=== PATIENT | male | born 1995 | race Caucasian/White ===

== ENCOUNTER 2025-06-21 11:20 | Emergency (ER) | payer SELFPAY ==
[2025-06-21] MEDS ORDERED: NA CHLORIDE 0.9% 1,000 ML ONE (11:34)
[2025-06-21] MEDS ORDERED: ONDANSETRON 4 MG/2 ML VIAL ONE ×2 (11:34→13:27)
--- NOTE | 2025-06-21 13:23 | ER ---
Nurse's Notes [facility] Name: Kenneth Brewer Age: 29 yrs Sex: Male : 1995 Arrival Date: 06/21/2025 Time: 11:20 Bed 6 Private MD: Diagnosis: Influenza due to identified novel influenza A virus-Influenza B;Dehydration Presentation: 06/21 11:28 Chief complaint: Patient states: Diagnosed with Flu B yesterday, pt reports inability aa5 to eat due to nausea, denies vomiting. Coronavirus screen: nausea. Ebola Screen: Patient denies travel to an Ebola-affected area in the 21 days before illness onset. Initial Sepsis Screen: Does the patient meet any 2 criteria? No. Patient's initial sepsis screen is negative. Does the patient have a suspected source of infection? No. Patient's initial sepsis screen is negative. Risk Assessment: Do you want to hurt yourself or someone else? Patient reports no desire to harm self or others. Onset of symptoms was June 2025. 11:28 Acuity: HARRISON 3 aa5 11:28 Method Of Arrival: Ambulatory aa5 Historical: - Allergies: 11:28 No Known Allergies; aa5 - PMHx: 11:28 None; aa5 - PSHx: 11:28 None; aa5 - Immunization history:: Adult Immunizations unknown. - Infectious Disease History:: Denies. - Social history:: Smoking status: Patient reports the use of cigarette tobacco products. Screenin:47 [facility] ED Fall Risk Assessment (Adult) History of falling in the last 3 months, me1 including since admission No falls in past 3 months (0 pts) Confusion or Disorientation No (0 pts) Intoxicated or Sedated No (0 pts) Impaired Gait No (0 pts) Mobility Assist Device Used No (0 pt) Altered Elimination No (0 pt) Score/Fall Risk Level 0 - 2 = Low Risk Maintained a safe environment, Provided non-skid footwear, Hourly rounding (assess needs \T\ fall precautionary measures) done. Abuse screen: Denies threats or abuse. Nutritional screening: No deficits noted. Tuberculosis screening: No symptoms or risk factors identified. Assessment: 11:47 General: Appears uncomfortable, ill, well groomed, well developed, well nourished, me1 Behavior is calm, cooperative, appropriate for age, Reports Diagnosed with Flu B yesterday, pt reports inability to eat due to nausea, denies vomiting. Pain: Denies pain. Neuro: Level of Consciousness is awake, alert, obeys commands, Oriented to person, place, time, situation, Appropriate for age. Cardiovascular: Patient's skin is warm and dry. Respiratory: Airway is patent Respiratory effort is even, unlabored, Respiratory pattern is regular, symmetrical. GI: Abdomen is non-distended, Reports nausea, since yesterday. : No signs and/or symptoms were reported regarding the genitourinary system. EENT: No signs and/or symptoms were reported regarding the EENT system. Derm: Skin is intact, is healthy with good turgor, Skin is pale. Musculoskeletal: No signs and/or symptoms reported regarding the musculoskeletal system. Circulation, motion, and sensation intact. Range of motion: intact in all extremities. Vital Signs: 11:28 BP 125 / 64; Pulse 69; Resp 22 S; Temp 98.5(O); Pulse Ox 100% on R/A; Weight 77.11 kg aa5 (R); Height 5 ft. 11 in. (R); 12:00 BP 109 / 55; Pulse 57; Resp 16; Pulse Ox 100% ; me1 13:00 BP 106 / 63; Pulse 48; Resp 19; Pulse Ox 98% ; me1 13:31 BP 134 / 66; Pulse 69; Resp 16; Temp 98.6; Pulse Ox 99% ; me1 11:28 Body Mass Index 23.71 (77.11 kg, 180.34 cm) aa5 ED Course: 11:24 Patient arrived in ED. cj3 11:25 Shaw Valle FNP-C is PHCP. dr5 11:25 Lisa Fuller MD is Attending Physician. dr5 11:28 Arm band placed on. aa5 11:29 Triage completed. aa5 11:33 Candi Silva, BI is Primary Nurse. me1 11:47 Patient has correct armband on for positive identification. Bed in low position. Call me1 light in reach. Side rails up X2. Provided Education on: POC. Verbalized understanding.. Client placed on continuous cardiac and pulse oximetry monitoring. NIBP monitoring applied. Pulse ox on. NIBP on. 11:47 No provider procedures requiring assistance completed. Inserted saline lock: 20 gauge me1 in left forearm, using aseptic technique. 13:38 IV discontinued, intact, bleeding controlled, No redness/swelling at site. Pressure me1 dressing applied. Administered Medications: 11:40 Drug: NS 0.9% IV 1000 ml IV at 1000 ml once; to be given as a bolus over 60 minutes me1 Route: IV; Rate: 1000 ml; Site: left forearm; 13:32 Follow up: Response: No adverse reaction; IV Status: Completed infusion; IV Intake: me1 1000ml 11:40 Drug: Ondansetron IVP 4 mg IVP once; over 2 minutes Route: IVP; Site: left forearm; me1 13:11 Follow up: Response: No adverse reaction; Nausea is decreased me1 13:38 Drug: Ondansetron IVP 4 mg IVP once; over 2 minutes Route: IVP; Site: left forearm; me1 13:42 Follow up: Response: No adverse reaction; Nausea is decreased me1 Medication: 11:47 VIS not applicable for this client. me1 Intake: 13:32 IV: 1000ml; Total: 1000ml. me1 Outcome: 13:22 Discharge ordered by MD. dr5 13:38 Discharged to home via wheelchair, me1 13:38 Condition: stable 13:38 Discharge instructions given to patient, Instructed on discharge instructions, follow up and referral plans. medication usage, Demonstrated understanding of instructions, follow-up care, medications, Prescriptions given X 2, 13:41 Patient left the ED. me1 Signatures: Olimpia Clarke RN RN aa5 Candi Silva RN RN me1 Shaw Valle, LUNCH TRUCK DRIVER-C LUNCH TRUCK DRIVER-Cdr5 Areli Simeon cj3 Corrections: (The following items were deleted from the chart) 11:46 11:28 Chief complaint: Patient states: Diagnosed with Flu B yesterday, pt reports me1 inability to eat due to nausea, denies vomiting. aa5
--- NOTE | 2025-06-21 13:23 | EDPHYS ---
Physician Documentation [facility] Name: Kenneth Brewer Age: 29 yrs Sex: Male : 1995 Arrival Date: 06/21/2025 Time: 11:20 Bed 6 Private MD: ED Physician Lisa Fuller HPI: 06/21 12:03 This 29 yrs old Male presents to ER via Ambulatory with complaints of FLU B dr5 POSITIVE, Dehydrated, Nausea. 12:03 Onset: The symptoms/episode began/occurred 3 day(s) ago. Patient is a 29-year-old male dr5 with no past medical history coming in with nausea and feeling of dehydration this been going on since yesterday. Patient reports he is been sick for 3 days. Patient states he went to [facility] and was diagnosed with influenza B. Patient reports they only prescribed him Zofran and is not helping his intake Patient denies chest pain, shortness of breath, constipation, or fever.. Historical: - Allergies: 11:28 No Known Allergies; aa5 - PMHx: 11:28 None; aa5 - PSHx: 11:28 None; aa5 - Immunization history:: Adult Immunizations unknown. - Infectious Disease History:: Denies. - Social history:: Smoking status: Patient reports the use of cigarette tobacco products. ROS: 12:03 Constitutional: as per hpi dr5 Exam: 12:03 Constitutional: This is a well developed, well nourished patient who is awake, alert, dr5 and in no acute distress. Head/Face: Normocephalic, atraumatic. Eyes: Pupils equal round and reactive to light, extra-ocular motions intact. Lids and lashes normal. Conjunctiva and sclera are non-icteric and not injected. Cornea within normal limits. Periorbital areas with no swelling, redness, or edema. Neck: Trachea midline, no thyromegaly or masses palpated, and no cervical lymphadenopathy. Supple, full range of motion without nuchal rigidity, or vertebral point tenderness. No Meningismus. Chest/axilla: Normal chest wall appearance and motion. Nontender with no deformity. No lesions are appreciated. Cardiovascular: Regular rate and rhythm with a normal S1 and S2. Normal PMI, no JVD. No pulse deficits. Respiratory: Lungs have equal breath sounds bilaterally, clear to auscultation. No rales, rhonchi or wheezes noted. No increased work of breathing, no retractions or nasal flaring. Back: No spinal tenderness. No costovertebral tenderness. Full range of motion. Skin: Warm, dry with normal turgor. Normal color with no rashes, no lesions, and no evidence of cellulitis. MS/ Extremity: Pulses equal, no cyanosis. Neurovascular intact. Full, normal range of motion. Neuro: Awake and alert, GCS 15, oriented to person, place, time, and situation. Cranial nerves II-XII grossly intact. Motor strength 5/5 in all extremities. Sensory grossly intact. Cerebellar exam normal. Normal gait. Vital Signs: 11:28 BP 125 / 64; Pulse 69; Resp 22 S; Temp 98.5(O); Pulse Ox 100% on R/A; Weight 77.11 kg aa5 (R); Height 5 ft. 11 in. (R); 12:00 BP 109 / 55; Pulse 57; Resp 16; Pulse Ox 100% ; me1 13:00 BP 106 / 63; Pulse 48; Resp 19; Pulse Ox 98% ; me1 13:31 BP 134 / 66; Pulse 69; Resp 16; Temp 98.6; Pulse Ox 99% ; me1 11:28 Body Mass Index 23.71 (77.11 kg, 180.34 cm) aa5 MDM: 11:25 Medical Screening Exam initiated dr5 13:25 Differential diagnosis: viral Infection, Dehydration, influenza. Data reviewed: vital dr5 signs, nurses notes. Consideration of Admission/Observation Escalation of care including admission/observation considered. Consider admission if patient was not p.o. tolerant.. Care significantly affected by the following Social Determinants of Health: Poor access to healthcare and/or lack of insurance, Poor access to transportation, Problems related to employment. Counseling: I had a detailed discussion with the patient and/or guardian regarding the historical points, exam findings, and any diagnostic results supporting the discharge/admit diagnosis, the presence of at least one elevated blood pressure reading (>120/80) during this emergency department visit, the need for outpatient follow up, for definitive care, a family practitioner, to return to the emergency department if symptoms worsen or persist or if there are any questions or concerns that arise at home. Medication response: Zofran relieved the patient's nausea. Normal saline. Response to treatment: the patient's symptoms have markedly improved after treatment. Special discussion: I have referred the patient to see his PCP for further evaluation of high blood pressure. I discussed with the patient/guardian in detail that at this point there is no indication for admission to the hospital. It is understood, however, that if the symptoms persist or worsen the patient needs to return immediately for re-evaluation. Based on the history and exam findings, there is no indication for further emergent testing or inpatient evaluation. I discussed with the patient/guardian the need to see the primary care provider for further evaluation of the symptoms. ED course: Patient was given 1 L NS and Zofran IV which has markedly improved his symptoms. Since symptoms started approximately 2 -3 days ago, will trial Tamiflu. I explained that Tamiflu may not be as effective given patient's time frame of symptoms. Patient reports he wants to try Tamiflu anyway. Patient has Zofran at home. Will add promethazine to try to help with his nausea. Patient passed p.o. challenge in ER. All questions answered. Strict ER precautions given.. Administered Medications: 11:40 Drug: NS 0.9% IV 1000 ml IV at 1000 ml once; to be given as a bolus over 60 minutes me1 Route: IV; Rate: 1000 ml; Site: left forearm; 13:32 Follow up: Response: No adverse reaction; IV Status: Completed infusion; IV Intake: me1 1000ml 11:40 Drug: Ondansetron IVP 4 mg IVP once; over 2 minutes Route: IVP; Site: left forearm; me1 13:11 Follow up: Response: No adverse reaction; Nausea is decreased me1 13:38 Drug: Ondansetron IVP 4 mg IVP once; over 2 minutes Route: IVP; Site: left forearm; me1 13:42 Follow up: Response: No adverse reaction; Nausea is decreased me1 Disposition Summary: 06/21/25 13:22 Discharge Ordered Notes: Location: Home dr5 Condition: Stable dr5 Diagnosis - Influenza due to identified novel influenza A virus - Influenza B dr5 - Dehydration dr5 Followup: dr5 - With: Emergency Department - When: As needed - Reason: Worsening of condition Followup: dr5 - With: Private Physician - When: 1 - 2 days - Reason: Recheck today's complaints, Continuance of care, Re-evaluation by your physician Discharge Instructions: - Discharge Summary Sheet dr5 - Influenza, Adult dr5 Forms: - Medication Reconciliation Form dr5 - Patient Portal Instructions dr5 - Leadership Thank You Letter dr5 Prescriptions: - promethazine 25 mg Oral Tablet - take 1 tablet ORAL route every 6 hours As needed; 20 tablet; Refills: 0, dr5 Product Selection Permitted - Tamiflu 75 mg Oral capsule - take 1 tablet ORAL route every 12 hours for 5 days; 10 tablet; Refills: 0, dr5 Product Selection Permitted Signatures: Olimpia Clarke RN RN aa5 Candi Silva RN RN me1 Shaw Valle, FIREFIGHTER-C FIREFIGHTER-Cdr5
[2025-06-21 13:52] VITALS: BP 134/66; TEMP 98.6; O2SAT 99
== END 2025-06-21 13:41 | disposition home or self-care (01) ==
LOC: ER 11:20
DX: J10.1 Influenza due to other identified influenza virus with other respiratory manifestations (principal); E86.0 Dehydration; Z72.0 Tobacco use
CPT/HCPCS: 96361; 96374; 99284; J2405; J7030

== ENCOUNTER 2025-06-22 03:03 | Emergency (ER) | payer SELFPAY ==
--- OUTSIDE RECORDS SUMMARY | 2025-06-22 03:06 | XMS REPORT | Continuity of Care Document ---
Author Name Unknown Address [address] [place] [address] [facility] Address [address] [place] [address] Care Team Providers Care Education Liaison Name Role Phone PCP, PATIENT DOES NOT HAVE A Primary Care Physic adriane Unavailable ELLI CASEY Attending Clinician Unavailable ELLI CASEY Attending Clinician Unavailable ZEHRA SPRING Attending Clinician Unavailab le Problems Condition Name Condition Details Condition Category Status Onset Date Resolution Date Last Treatment Date Treating Clinician Comments Source Tinea corporis Tinea corporis Disease Active 05-17 00:00: 00 [facility] Allergies, Adverse Reactions, Alerts Allergy Name Allergy Type Status Severity Reaction(s) Onset Date Inactive Date Treating Clinician Comments Source NO KNOWN ALLERGIE S Drug Class Active [facility] Social History Social Habit Start Date Stop Date Quantity Comments Source Sexual orientation [facility] Sex assigned at 1995 00:00:00 1995 00:00:00 [facility] Smoking Status Start Date Stop Date Source Tobacco smoking consumption unknown [facility] Medications Ordered Medication Name Filled Medication Name Start Date Stop Date Current Medication? Ordering Clinician Indication Dosage Frequency Signature (SIG) Comments Components Source ondansetron (ZOFRAN-ODT ) disintegrat ing tablet 4 mg 06-21 00:15: 00 06-20 23:24 :00 No 4mg 4 mg, Oral, ONCE, 1 dose, On 06/20/25 at 1915, DIMITRI [facility] clotrimazol e-betametha sone 1-0.05 % lotion 05-17 00:00: 00 05-25 04:59 :00 Yes [id number] Apply to area(s) 2 times daily for 7 days. [facility] Vital Signs Vital Name Observation Time Observation Value Comments S yuly Systolic blood pressure 2025-06-20 23:06:00 115 mm[Hg] [facility] Diastolic blood pressure 2025-06-20 23:06:00 54 mm[Hg] [facility] Heart rate 2025-06-20 23:06:00 82 /min [facility] Body temperature 2025-06-20 23:06:00 37.72 [facility] Respiratory rate 2025-06-20 23:06:00 17 /min [facility] Body height 2025-06-20 23:06:00 180.3 cm [facility] Body weight 2025-06-20 23:06:00 77.111 kg [facility] BMI 2025-06-20 23:06:00 23.71 kg/m2 [facility] Oxygen saturation in Arterial blood by Pulse oximetry 2025-06-20 23:06:00 100 /min [facility] Systolic blood pressure 2025-05-17 07:40:00 121 mm[Hg] [facility] Diastolic blood pressure 2025-05-17 07:40:00 75 mm[Hg] [facility] Heart rate 2025-05-17 07:40:00 47 /min [facility] Body temperature 2025-05-17 07:40:00 36.39 [facility] Respiratory rate 2025-05-17 07:40:00 18 /min [facility] Oxygen saturation in Arterial blood by Pulse oximetry 2025-05-17 07:40:00 98 /min [facility] Body height 2025-05-17 05:52:00 180.3 cm [facility] Body weight 2025-05-17 05:52:00 77.111 kg [facility] BMI 2025-05-17 05:52:00 23.71 kg/m2 [facility] Encounters Start Date/Time End Date/Time Encounter Type Admission Type Attending Clinicians Care Facility Care Department Encounter ID Source 2025-06-20 18:07:00 2025-06-20 20:45:00 Emergency X ELLI CASEY BRENT RUST ERT [id number] [facility] 2025-05-17 00:58:00 2025-05-17 02:44:00 Emergency X ZEHRA SPRING RUST ERT [id number] [facility] Notes Date/Time Note Provider Source 2025-06-20 20:36:59 Called for pt from the lobby and no response. Tatiana Best [facility] 2025-06-20 19:30:00 Pt called for lab work and fluids, no response, will try again. Kaylan Fuller RN [facility] 2025-06-20 18:03:19 Patient arrived ambulatory to ED c/o unable to sleep, poor PO intake and other symptoms stating started about 36 hours ago. Has been OTC medications but unable to keep it down. Has been around sick contacts. States has been having episodes of emesis but denies any diarrhea. Aracelis Jeff RN [facility] 2025-05-17 02:42:04 Pt given printed and verbal discharge instructions regarding tinea corporis. Prescriptions provided x1 Pt verbalized understanding of instructions, pt awake alert oriented, resp reg unlabored, skin w/d, color appropriate for race, moves all ext well,pt encouraged to follow up with pcp and specialist. Advised to seek medical attention for new/prolonged/worsening of symptoms. Awake, alert oriented, resp reg unlabored, skin w/d, pt leaving amb with steady gait, in no apparent distress. T Eli Mckeon RN [facility] 2025-05-17 00:50:41 C/o rash of back of right leg x3 days Itches and ibrahim Unsure of what caused rash T [facility]
[2025-06-22 04:21] LABS: Absolute Lymphocytes (CBC) 0.6 K/uL (0.7-4.9); Hematocrit 39.7 % (39.6-49.0); Hemoglobin 14.1 g/dL (13.6-17.9); MCH 30.3 pg (27.0-35.0); MCHC 35.5 g/dL (32.0-36.0); MCV 85.4 fL (80-100); MPV 8.6 fL (7.6-11.3); Nucleated RBC Absolute Count 0.0 (0-0); Nucleated Red Blood Cells % 0.1 % (0-0); RBC Red Blood Cell Count 4.66 M/uL (4.33-5.43); White Blood Count 3.70 thou/uL (4.3-10.9)
[2025-06-22 04:31] LABS: ALT/SGPT 29.0 U/L (16-61); AST/SGOT 21.0 U/L (15-37); Albumin 3.8 g/dL (3.4-5.0); Albumin/Globulin Ratio 1.1 (1.1-1.8); Alkaline Phosphatase 38.0 U/L (45-117); Anion Gap 8.6 mEq/L (5.0-15.0); BUN Blood Urea Nitrogen 21.0 mg/dL (7-18); Bilirubin Indirect, Calculated 0.4 mg/dL (0.2-0.8); Globulin 3.4 g/dL (2.3-3.5); Glucose Level 99.0 mg/dL (74-106); Magnesium 1.8 mg/dL (1.6-2.4); Potassium 3.6 mEq/L (3.5-5.1); Troponin High Sensitivity 9.7 pg/mL (<58.9)
--- NOTE | 2025-06-22 04:55 | ER ---
Nurse's Notes [facility] Name: Kenneth Brewer Age: 29 yrs Sex: Male : 1995 Arrival Date: 06/22/2025 Time: 03:03 Bed 6 Private MD: Diagnosis: Chest pain, unspecified;Nausea with vomiting, unspecified Presentation: 06/22 03:29 Chief complaint: Patient states: chest pain, nausea, vomiting, and headache. Patient cp4 was diagnosed with flu yesterday and is taking tamiflu. Coronavirus screen: Vaccine status: Client denies travel out of the [place] in the last 14 days. At this time, the client does not indicate any symptoms associated with coronavirus-19. Ebola Screen: Patient negative for fever greater than or equal to 101.5 degrees Fahrenheit, and additional compatible Ebola Virus Disease symptoms Patient denies exposure to infectious person. Patient denies travel to an Ebola-affected area in the 21 days before illness onset. No symptoms or risks identified at this time. Initial Sepsis Screen: Does the patient meet any 2 criteria? No. Patient's initial sepsis screen is negative. Does the patient have a suspected source of infection? No. Patient's initial sepsis screen is negative. Risk Assessment: Do you want to hurt yourself or someone else? Patient reports no desire to harm self or others. Onset of symptoms was June 22, 2025 at 00:00. 03:29 Method Of Arrival: Ambulatory 4 03:29 Acuity: HARRISON 3 cp4 Triage Assessment: 03:31 General: Appears in no apparent distress. uncomfortable, Behavior is calm, cooperative, cp4 appropriate for age. Pain: Complains of pain in face and chest Pain does not radiate. Pain currently is 8 out of 10 on a pain scale. Pain began 3 hours ago. EENT: No signs and/or symptoms were reported regarding the EENT system. Neuro: Level of Consciousness is awake, alert, obeys commands, Oriented to person, place, time, situation. Cardiovascular: Patient's skin is warm and dry. Rhythm is sinus rhythm. Respiratory: Airway is patent Respiratory effort is even, unlabored. GI: Reports nausea, vomiting. GI: Abdomen is round non-distended, Bowel sounds present X 4 quads. Abd is soft and non tender X 4 quads. : No signs and/or symptoms were reported regarding the genitourinary system. Derm: No signs and/or symptoms reported regarding the dermatologic system. Musculoskeletal: No signs and/or symptoms reported regarding the musculoskeletal system. Historical: - Allergies: 03:31 No Known Allergies; cp4 - Immunization history:: Adult Immunizations. - Infectious Disease History:: Denies. - Social history:: Smoking status: Patient reports the use of cigarette tobacco products, denies chronic smoking, but will smoke occasionally. Screenin:33 [facility] ED Fall Risk Assessment (Adult) History of falling in the last 3 months, cp4 including since admission No falls in past 3 months (0 pts) Confusion or Disorientation No (0 pts) Intoxicated or Sedated No (0 pts) Impaired Gait No (0 pts) Mobility Assist Device Used No (0 pt) Altered Elimination No (0 pt) Score/Fall Risk Level 0 - 2 = Low Risk Oriented to surroundings, Maintained a safe environment, Assessed \T\ reinforced patient's understanding of fall precautions, Hourly rounding (assess needs \T\ fall precautionary measures) done. Abuse screen: Denies threats or abuse. Denies injuries from another. Nutritional screening: No deficits noted. Tuberculosis screening: No symptoms or risk factors identified. Never had TB. Assessment: 03:33 Reassessment: No changes from previously documented assessment. Pain: Complains of pain cp4 in chest and face. Pain: Pain does not radiate. Pain currently is 8 out of 10 on a pain scale. Quality of pain is described as aching, Pain began 3 hours ago. Vital Signs: 03:29 BP 132 / 70; Pulse 57; Resp 18; Temp 98.9; Pulse Ox 100% ; Weight 77.11 kg; Height 5 cp4 ft. 11 in. ; Pain 8/10; 04:13 BP 116 / 64; Pulse 52; Resp 18; Pulse Ox 99% ; cp4 05:12 BP 109 / 71; Pulse 51; Resp 18; Pulse Ox 98% ; cp4 03:29 Body Mass Index 23.71 (77.11 kg, 180.34 cm) cp4 03:29 Pain Scale: Adult cp4 ED Course: 03:05 Patient arrived in ED. jj6 03:07 Wali Arrieta DO is Attending Physician. ms3 03:29 Magdalene Lopez is Primary Nurse. cp4 03:31 Triage completed. cp4 03:31 Arm band placed on right wrist. Patient placed in waiting room. cp4 03:33 Bed in low position. Call light in reach. Side rails up X 1. Client placed on cp4 continuous cardiac and pulse oximetry monitoring. NIBP monitoring applied. equipment monitor phototypesetting on. Pulse ox on. NIBP on. 03:33 No provider procedures requiring assistance completed. Patient maintains SpO2 cp4 saturation greater than 95% on room air. 03:33 Inserted saline lock: 20 gauge in right antecubital area, using aseptic technique. sa1 Blood collected. Flushed with 10 mL NS. 03:46 XRAY Chest (1 view) In Process Unspecified. EDMS 04:55 Gregorio Holm DO is Referral Physician. ms3 05:14 Provided Education on: chest pain. cp4 05:39 intact, bleeding controlled, No redness/swelling at site. Pressure dressing applied. cp4 Administered Medications: No medications were administered Medication: 03:33 VIS not applicable for this client. cp4 Outcome: 04:55 Discharge ordered by . ms3 05:39 Discharged to home ambulatory, cp4 05:39 Condition: stable 05:39 Discharge instructions given to patient, Instructed on discharge instructions, follow up and referral plans. medication usage, Demonstrated understanding of instructions, follow-up care, medications, Prescriptions given X 1, 05:40 Patient left the ED. cp4 Signatures: Dispatcher [employer] EDMS Wali Arrieta DO DO ms3 Eloise Dee Christina cp4 Sultan Clara sa1
--- NOTE | 2025-06-22 04:55 | EDPHYS ---
Physician Documentation [facility] Name: Kenneth Brewer Age: 29 yrs Sex: Male : 1995 Arrival Date: 06/22/2025 Time: 03:03 Bed 6 Private MD: ED Physician Wali Arrieta HPI: 06/22 04:42 This 29 yrs old Male presents to ER via Ambulatory with complaints of Chest Pain, ms3 Nausea/Vomiting. 04:42 29-year-old male with no past medical history presents to the emergency department for ms3 nausea, vomiting, chest pain. Patient was diagnosed with flu B in the emergency department yesterday and states he took Tamiflu and Phenergan. Patient states he is unable to drink or keep fluids down. Patient states he is having 6/10 stabbing chest pain. He denies any alleviating or inciting factors. Patient states the symptoms began at midnight.. Historical: - Allergies: 03:31 No Known Allergies; cp4 - Immunization history:: Adult Immunizations. - Infectious Disease History:: Denies. - Social history:: Smoking status: Patient reports the use of cigarette tobacco products, denies chronic smoking, but will smoke occasionally. ROS: 04:42 Constitutional: Negative for fever, and chills. Respiratory: Negative for shortness of ms3 breath, cough, wheezing, and pleuritic chest pain, Skin: Negative for injury, rash, and discoloration, 04:42 Cardiovascular: Positive for chest pain, 04:42 Abdomen/GI: Positive for nausea and vomiting, Exam: 03:40 ECG was reviewed by the Attending Physician. ms3 04:42 Constitutional: This is a well developed, well nourished patient who is awake, alert, ms3 and in no acute distress. Cardiovascular: Regular rate and rhythm with a normal S1 and S2. No gallops, murmurs, or rubs. Normal PMI, no JVD. No pulse deficits. Respiratory: Lungs have equal breath sounds bilaterally, clear to auscultation and percussion. No rales, rhonchi or wheezes noted. No increased work of breathing, no retractions or nasal flaring. Abdomen/GI: Soft, non-tender, with normal bowel sounds. No distension or tympany. No guarding or rebound. No evidence of tenderness throughout. Skin: Warm, dry with normal turgor. Normal color with no rashes, no lesions, and no evidence of cellulitis. MS/ Extremity: Pulses equal, no cyanosis. Neurovascular intact. Full, normal range of motion. Vital Signs: 03:29 BP 132 / 70; Pulse 57; Resp 18; Temp 98.9; Pulse Ox 100% ; Weight 77.11 kg; Height 5 cp4 ft. 11 in. ; Pain 8/10; 04:13 BP 116 / 64; Pulse 52; Resp 18; Pulse Ox 99% ; cp4 05:12 BP 109 / 71; Pulse 51; Resp 18; Pulse Ox 98% ; cp4 03:29 Body Mass Index 23.71 (77.11 kg, 180.34 cm) cp4 03:29 Pain Scale: Adult cp4 MDM: 03:12 Medical Screening Exam initiated ms3 04:42 Differential diagnosis: abnormal EKG, acute myocardial infarction, acute pericarditis, ms3 anxiety, coronary artery disease chest wall pain. 05:00 HEART Score: History: Slightly Suspicious (0), ECG: Normal (0), Age: < or = 45 years ms3 (0), Risk Factors: No Risk Factors Known (0), Troponin: < or = 1 x Normal Limit (0), Total Score = 0. Data reviewed: vital signs, nurses notes, lab test result(s), EKG, radiologic studies, and as a result, I will discharge patient. Independent interpretation of the following test(s) in the Emergency Department EKG: See my EKG interpretation above X-Ray: My interpretation is Chest x-ray image reviewed by me does not reveal pulmonary edema or pneumonia. monitoring coordinator: rate is 48 beats/min, Rhythm is sinus bradycardia, with no ectopy, Interpretation: normal rhythm, bradycardia. Counseling: I had a detailed discussion with the patient and/or guardian regarding the historical points, exam findings, and any diagnostic results supporting the discharge/admit diagnosis, lab results, radiology results, the need for outpatient follow up, to return to the emergency department if symptoms worsen or persist or if there are any questions or concerns that arise at home. Special discussion: Based on the patient's history, exam, and Dx evaluation, there is no indication for emergent intervention or inpatient Tx. It is understood by the patient/guardian that if the Sx's persist or worsen they need to return immediately for re-evaluation. ED course: Discussed labs, EKG, imaging with patient. Patient to follow-up primary care physician in 2 to 3 days. Patient understands and agrees with plan. All questions were answered. Return precautions discussed include worsening symptoms, or any other concerns . 06/22 03:08 Order name: Basic Metabolic Panel; Complete Time: 04:42 ms3 06/22 03:08 Order name: CBC with Diff; Complete Time: 05:08 ms3 06/22 03:08 Order name: LFT's; Complete Time: 04:42 ms3 06/22 03:08 Order name: Magnesium; Complete Time: 04:42 ms3 06/22 03:08 Order name: Troponin HS; Complete Time: 04:42 ms3 06/22 04:26 Order name: Manual Differential; Complete Time: 05:08 EDMS 06/22 03:08 Order name: XRAY Chest (1 view) ms3 06/22 03:08 Order name: EKG; Complete Time: 03:08 ms3 06/22 03:08 Order name: Cardiac monitoring; Complete Time: 03:35 ms3 06/22 03:08 Order name: EKG - Nurse/Tech; Complete Time: 03:35 ms3 06/22 03:08 Order name: IV Saline Lock; Complete Time: 03:35 ms3 06/22 03:08 Order name: Labs collected and sent; Complete Time: 03:35 ms3 06/22 03:08 Order name: O2 Per Protocol; Complete Time: 03:35 ms3 06/22 03:08 Order name: O2 Sat Monitoring; Complete Time: 03:35 ms3 EC:40 Rate is 47 beats/min. Rhythm is regular. QRS [place] is Normal. [place] interval is normal. QRS ms3 interval is normal. QT interval is normal. Clinical impression: Sinus bradycardia. Interpreted by me. Reviewed by me. Administered Medications: No medications were administered Disposition Summary: 06/22/25 04:55 Discharge Ordered Notes: Location: Home ms3 Condition: Stable ms3 Diagnosis - Chest pain, unspecified ms3 - Nausea with vomiting, unspecified ms3 Followup: ms3 - With: Gregorio Holm, DO - When: 2 - 3 days - Reason: Recheck today's complaints Discharge Instructions: - Discharge Summary Sheet ms3 - Nonspecific Chest Pain, Adult ms3 - Nausea and Vomiting, Adult ms3 Forms: - Medication Reconciliation Form ms3 - Antibiotic Education ms3 - Prescription Opioid Use ms3 - Patient Portal Instructions ms3 - Leadership Thank You Letter ms3 Prescriptions: - ondansetron 4 mg Oral Tablet,disintegrating - take 1 tablet ORAL route every 8 hours as needed for nausea and vomiting; 10 ms3 tablet; Refills: 0, Product Selection Permitted Signatures: Dispatcher [employer] EDMS Wali Arrieta, DO ms3 Magdalene Lopez cp4
[2025-06-22 05:06] LABS: Differential Total Cells Count 100; Segmented Neutrophils 33 % (40-80)
[2025-06-22 05:07] LABS: Blood Morphology Comment NOT SEEN (NOT SEEN)
[2025-06-22 05:48] VITALS: TEMP 98.9
[2025-06-22 05:50] VITALS: BP 109/71; O2SAT 98
--- NOTE | 2025-06-22 06:02 | RAD REPORT ---
INDICATION: CHEST PAIN COMPARISON: No existing relevant imaging studies are available FINDINGS: Single frontal view of the chest was obtained. SUPPORT DEVICES: None HEART/MEDIASTINUM: Cardiomediastinal contours are normal. LUNGS/PLEURA: Lungs are clear. No pleural effusion or pneumothorax. OTHER: No other significant findings. IMPRESSION: No acute findings. Electronically signed by: Jason Cabrera DO 06/22/2025 03:57 AM CDT NR Due to temporary technical issues with the [employer] reporting system, reports are being darwin d by the in-house radiologist without review as a courtesy to ensure prompt reporting the interpreting radiologist is fully responsible for the content of the report. Transcribed Date/Time: 06/22/2025 6:02 AM
== END 2025-06-22 05:40 | disposition home or self-care (01) ==
LOC: ER 03:03
DX: R07.9 Chest pain, unspecified (principal); R11.2 Nausea with vomiting, unspecified
CPT/HCPCS: 36415; 71045; 80048; 80076; 83735; 84484; 85025; 93005; 99284

== ENCOUNTER 2025-07-09 17:14 | Emergency (ER) | payer SELFPAY ==
--- OUTSIDE RECORDS SUMMARY | 2025-07-09 17:16 | XMS REPORT | Continuity of Care Document ---
Author Name Unknown Address [address] [place] [address] [address] [place] [address] [facility] Address [address] [facility] [place] [address] Care Team Providers Care Laundry Equipment Operator Name Role Phone PCP, PATIENT DOES NOT HAVE A Primary Care Physic adriane Unavailable ELLI CASEY Attending Clinician Unavailable ELLI CASEY Attending Clinician Unavailable ZEHRA SPRING Attending Clinician Unavailab le Problems Condition Name Condition Details Condition Category Status Onset Date Resolution Date Last Treatment Date Treating Clinician Comments Source Tinea corporis Tinea corporis Disease Active 05-17 00:00: 00 [facility] Allergies, Adverse Reactions, Alerts Allergy Name Allergy Type Status Severity Reaction(s) Onset Date Inactive Date Treating Clinician Comments Source NO KNOWN ALLERGIE S Drug Class Active [facility] Social History Social Habit Start Date Stop Date Quantity Comments Source Sexual orientation U [facility] Sex assigned at 1995 00:00:00 1995 00:00:00 [facility] Smoking Status Start Date Stop Date Source Tobacco smoking consumption unknown [facility] Medications Ordered Medication Name Filled Medication Name Start Date Stop Date Current Medication? Ordering Clinician Indication Dosage Frequency Signature (SIG) Comments Components Source ondansetron (ZOFRAN-ODT ) disintegrat ing tablet 4 mg 06-21 00:15: 00 06-20 23:24 :00 No 4mg 4 mg, Oral, ONCE, 1 dose, On 06/20/25 at 1915, DIMITRI [facility] clotrimazol e-betametha sone 1-0.05 % lotion 05-17 00:00: 00 05-25 04:59 :00 Yes [id number] Apply to area(s) 2 times daily for 7 days. [facility] Vital Signs Vital Name Observation Time Observation Value Comments Farhana emery Systolic blood pressure 2025-06-20 23:06:00 115 mm[Hg] [facility] Diastolic blood pressure 2025-06-20 23:06:00 54 mm[Hg] [facility] Heart rate 2025-06-20 23:06:00 82 /min [facility] Body temperature 2025-06-20 23:06:00 37.72 Tigist [facility] Respiratory rate 2025-06-20 23:06:00 17 /min [facility] Body height 2025-06-20 23:06:00 180.3 cm [facility] Body weight 2025-06-20 23:06:00 77.111 kg [facility] BMI 2025-06-20 23:06:00 23.71 kg/m2 [facility] Oxygen saturation in Arterial blood by Pulse oximetry 2025-06-20 23:06:00 100 /min [facility] Systolic blood pressure 2025-05-17 07:40:00 121 mm[Hg] [facility] Diastolic blood pressure 2025-05-17 07:40:00 75 mm[Hg] [facility] Heart rate 2025-05-17 07:40:00 47 /min [facility] Body temperature 2025-05-17 07:40:00 36.39 Tigist [facility] Respiratory rate 2025-05-17 07:40:00 18 /min [facility] Oxygen saturation in Arterial blood by Pulse oximetry 2025-05-17 07:40:00 98 /min [facility] Body height 2025-05-17 05:52:00 180.3 cm [facility] Body weight 2025-05-17 05:52:[address] [facility] BMI 2025-05-17 05:52:00 23.71 kg/m2 [facility] Encounters Start Date/Time End Date/Time Encounter Type Admission Type Attending Clinicians Care Facility Care Department Encounter ID Source 2025-06-20 18:07:00 2025-06-20 20:45:00 Emergency X ELLI CASEY [facility] ERT [id number] [facility] 2025-05-17 00:58:00 2025-05-17 02:44:00 Emergency X ZEHRA SPRING [facility] ERT [id number] [facility] Notes Date/Time Note Provider Source 2025-06-20 20:36:59 Called for pt from the lobby and no response. Tatiana Best [facility] 2025-06-20 19:30:00 Pt called for lab work and fluids, no response, will try again. Kaylan Fuller RN [facility] 2025-06-20 18:03:19 Patient arrived ambulatory to ED c/o unable to sleep, poor PO intake and other symptoms stating started about 36 hours ago. Has been OTC medications but unable to keep it down. Has been around sick contacts. States has been having episodes of emesis but denies any diarrhea. Aracelis Jeff RN [facility] 2025-05-17 02:42:04 Pt given printed and [...] with steady gait, in no apparent distress. Eli Mckeon RN [facility] 2025-05-17 00:50:41 C/o rash of back of right leg x3 days Itches and ibrahim Unsure of what caused rash T [facility]
--- NOTE | 2025-07-09 17:47 | EDPHYS ---
Physician Documentation [facility] Name: Kenneth Brewer Age: 29 yrs Sex: Male : 1995 Arrival Date: 07/09/2025 Time: 17:14 Bed DX5 Private MD: ED Physician Neil Marti HPI: 07/09 17:58 This 29 yrs old Male presents to ER via Ambulatory with complaints of dr5 Toothache. 17:58 The patient presents with broken tooth/teeth. Onset: The symptoms/episode dr5 began/occurred 2 day(s) ago. Patient is a 29-year-old male with no past medical history coming in with toothache and right sided pain has been going on for 2 days. Patient reports he called [facility] and was prescribed Augmentin. Patient reports taking 1 dose of Augmentin with mild relief. Patient also states that his pain is not improved as he did not get pain medication from the [facility] provider. Patient denies difficulty speaking, handling secretions. Patient also reports he is seeing Dr. Sharma (dentist) tomorrow for evaluation in [place].. Historical: - Allergies: 17:42 No Known Allergies; me1 - Home Meds: 17:42 None [Active]; me1 - PMHx: 17:42 None; me1 - PSHx: 17:42 None; me1 - Immunization history:: Adult Immunizations up to date. - Infectious Disease History:: Denies. - Social history:: Smoking status: Patient reports the use of cigarette tobacco products, smokes one-half pack cigarettes per day. ROS: 17:58 Constitutional: as per hpi dr5 Exam: 17:58 Constitutional: This is a well developed, well nourished patient who is awake, alert, dr5 and in no acute distress. Head/Face: Normocephalic, atraumatic. Eyes: Pupils equal round and reactive to light, extra-ocular motions intact. Lids and lashes normal. Conjunctiva and sclera are non-icteric and not injected. Cornea within normal limits. Periorbital areas with no swelling, redness, or edema. Neck: Trachea midline, no thyromegaly or masses palpated, and no cervical lymphadenopathy. Supple, full range of motion without nuchal rigidity, or vertebral point tenderness. No Meningismus. Chest/axilla: Normal chest wall appearance and motion. Nontender with no deformity. No lesions are appreciated. Cardiovascular: Regular rate and rhythm with a normal S1 and S2. Normal PMI, no JVD. No pulse deficits. Respiratory: Lungs have equal breath sounds bilaterally, clear to auscultation. No rales, rhonchi or wheezes noted. No increased work of breathing, no retractions or nasal flaring. Back: No spinal tenderness. No costovertebral tenderness. Full range of motion. Skin: Warm, dry with normal turgor. Normal color with no rashes, no lesions, and no evidence of cellulitis. MS/ Extremity: Pulses equal, no cyanosis. Neurovascular intact. Full, normal range of motion. Neuro: Awake and alert, GCS 15, oriented to person, place, time, and situation. Cranial nerves II-XII grossly intact. Motor strength 5/5 in all extremities. Sensory grossly intact. Cerebellar exam normal. Normal gait. 17:58 ENT: External ear(s): are unremarkable, Ear canal(s): are normal, TM's: are normal, Nose: is normal, Mouth: Dental exam: dental caries, that is moderate, specifically in the upper left first molar (#14), upper left second molar (#15), upper left third molar (#16), lower left third molar (#17), lower left second molar (#18) and lower left first molar (#19), pain, that is moderate, specifically in the upper left first molar (#14), upper left second molar (#15), upper left third molar (#16) and lower left third molar (#17), Vital Signs: 17:40 BP 147 / 80; Pulse 72; Resp 16; Pulse Ox 98% ; Weight 77.11 kg; Height 5 ft. 11 in. ; me1 Pain 8/10; 17:53 BP 148 / 82; Pulse 70; Resp 16; Temp 98.2; Pulse Ox 99% ; me1 17:40 Body Mass Index 23.71 (77.11 kg, 180.34 cm) me1 17:40 Pain Scale: Adult me1 MDM: 17:17 Medical Screening Exam initiated dr5 17:58 Differential diagnosis: dental caries, gingivitis, dental abscess, pericoronitis. Data dr5 reviewed: vital signs, nurses notes. Consideration of Admission/Observation Escalation of care including admission/observation considered. Escalation considered patient found to have fever or cheek swelling.. I considered the following discharge prescriptions or medication management in the emergency department I discussed and recommended Over The Counter medications, Medications were administered in the Emergency Department. See MAR. Care significantly affected by the following Social Determinants of Health: Poor access to healthcare and/or lack of insurance, Poor access to transportation, Problems related to employment. Counseling: I had a detailed discussion with the patient and/or guardian regarding the historical points, exam findings, and any diagnostic results supporting the discharge/admit diagnosis, the presence of at least one elevated blood pressure reading (>120/80) during this emergency department visit, the need for outpatient follow up, for definitive care, a family practitioner, to return to the emergency department if symptoms worsen or persist or if there are any questions or concerns that arise at home. Medication response: [place]. Special discussion: I discussed with the patient/guardian in detail that at this point there is no indication for admission to the hospital. It is understood, however, that if the symptoms persist or worsen the patient needs to return immediately for re-evaluation. Based on the history and exam findings, there is no indication for further emergent testing or inpatient evaluation. I discussed with the patient/guardian the need to see a dentist for further evaluation of the symptoms. ED course: Will have patient follow up with dentist tomorrow. Will give pain medications and have him follow up tomorrow with dentist. Patient agreeable to plan. STRICT ER precautions given.. Administered Medications: 17:51 Drug: Ketorolac IM 30 mg IM once Route: IM; Site: right deltoid; me1 17:53 Follow up: Response: No adverse reaction; Pain is decreased me1 17:52 Drug: HYDROcodone-acetaminophen PO 5 mg-325 mg 2 tabs PO once Route: PO; me1 17:53 Follow up: Response: No adverse reaction me1 Disposition: 07/10 13:39 Co-signature as Attending Physician, Neil Marti MD I agree with the assessment and maricarmen plan of care. Disposition Summary: 07/09/25 17:47 Discharge Ordered Notes: Location: Home dr5 Condition: Stable dr5 Diagnosis - Dental caries, unspecified dr5 Followup: dr5 - With: Emergency Department - When: As needed - Reason: Worsening of condition Followup: dr5 - With: Private Physician - When: 1 - 2 days - Reason: Recheck today's complaints, Continuance of care, Re-evaluation by your physician Discharge Instructions: - Discharge Summary Sheet dr5 - Dental Caries, Adult dr5 Forms: - Medication Reconciliation Form dr5 - Prescription Opioid Use dr5 - Patient Portal Instructions dr5 - Leadership Thank You Letter dr5 Prescriptions: - Ibuprofen 800 mg Oral Tablet - take 1 tablet ORAL route every 12 hours As needed take with food; 20 tablet; dr5 Refills: 0, Product Selection Permitted - Tramadol 50 mg Oral Tablet - take 1 tablet ORAL route every 8 hours as needed; 12 tablet; Refills: 0, dr5 Product Selection Permitted Signatures: Neil Marti MD MD cha Eddleman, Michelle RN RN me1 Shaw Valle, SHEEP SORTER-C SHEEP SORTER-Cdr5
--- NOTE | 2025-07-09 17:47 | ER ---
Nurse's Notes [facility] Name: Kenneth Brewer Age: 29 yrs Sex: Male : 1995 Arrival Date: 07/09/2025 Time: 17:14 Bed DX5 Private MD: Diagnosis: Dental caries, unspecified Presentation: 07/09 17:40 Chief complaint: Patient states: toothache to right upper and lower teeth. Did teledoc me1 visit yesterday and started augmentin and has a dentist appt with Dr Sharma tomorrow but cannot tolerate the pain. 06/21 at this time. Coronavirus screen: At this time, the client does not indicate any symptoms associated with coronavirus-19. Ebola Screen: No symptoms or risks identified at this time. Initial Sepsis Screen: Does the patient meet any 2 criteria? Yes Does the patient have a suspected source of infection? No. Patient's initial sepsis screen is negative. Risk Assessment: Do you want to hurt yourself or someone else? Patient reports no desire to harm self or others. Onset of symptoms was July 08, 2025. 17:40 [place] [facility] [place] Acuity: HARR[place] 5 nd1 Triage Assessment: 17:44 General: Appears uncomfortable, well groomed, well developed, well nourished, Behavior me1 is calm, cooperative, appropriate for age. Pain: Complains of pain in right cheek and right jaw Pain does not radiate. Pain currently is 8 out of 10 on a pain scale. Quality of pain is described as sharp, throbbing, Pain began 1 day ago. Is continuous. EENT: No signs and/or symptoms were reported regarding the EENT system. Reports pain in right cheek and right jaw. Neuro: Level of Consciousness is awake, alert, obeys commands, Oriented to person, place, time, situation, Appropriate for age. Cardiovascular: Patient's skin is warm and dry. Respiratory: Airway is patent Respiratory effort is even, unlabored, Respiratory pattern is regular, symmetrical. GI: No signs and/or symptoms were reported involving the gastrointestinal system. : No signs and/or symptoms were reported regarding the genitourinary system. Derm: Skin is intact, is healthy with good turgor, Skin is pink, warm \T\ dry. Musculoskeletal: Circulation, motion, and sensation intact. Range of motion: intact in all extremities. Historical: - Allergies: 17:42 No Known Allergies; me1 - Home Meds: 17:42 None [Active]; me1 - PMHx: 17:42 None; me1 - PSHx: 17:42 None; me1 - Immunization history:: Adult Immunizations up to date. - Infectious Disease History:: Denies. - Social history:: Smoking status: Patient reports the use of cigarette tobacco products, smokes one-half pack cigarettes per day. Screenin:46 [facility] ED Fall Risk Assessment (Adult) History of falling in the last 3 months, me1 including since admission No falls in past 3 months (0 pts) Confusion or Disorientation No (0 pts) Intoxicated or Sedated No (0 pts) Impaired Gait No (0 pts) Mobility Assist Device Used No (0 pt) Altered Elimination No (0 pt) Score/Fall Risk Level 0 - 2 = Low Risk Maintained a safe environment, Provided non-skid footwear, Hourly rounding (assess needs \T\ fall precautionary measures) done. Abuse screen: Denies threats or abuse. Nutritional screening: No deficits noted. Tuberculosis screening: No symptoms or risk factors identified. Assessment: 17:46 General: See triage assessment. me1 Vital Signs: 17:40 BP 147 / 80; Pulse 72; Resp 16; Pulse Ox 98% ; Weight 77.11 kg; Height 5 ft. 11 in. ; me1 Pain 8/10; 17:53 BP 148 / 82; Pulse 70; Resp 16; Temp 98.2; Pulse Ox 99% ; me1 17:40 Body Mass Index 23.71 (77.11 kg, 180.34 cm) me1 17:40 Pain Scale: Adult nd1 ED Course: 17:17 Patient arrived in ED. cj3 17:17 [facility] 17:17 Neil Marti MD is Attending Physician. dr5 17:42 Triage completed. me1 17:42 Arm band placed on Patient placed in an internal wait recliner. me1 17:46 Patient has correct armband on for positive identification. Provided Education on: POC. me1 Verbalized understanding.. 17:46 No provider procedures requiring assistance completed. Patient did not have IV access me1 during this emergency room visit. Administered Medications: 17:51 Drug: Ketorolac IM 30 mg IM once Route: IM; Site: right deltoid; me1 17:53 Follow up: Response: No adverse reaction; Pain is decreased me1 17:52 Drug: HYDROcodone-acetaminophen PO 5 mg-325 mg 2 tabs PO once Route: PO; me1 17:53 Follow up: Response: No adverse reaction me1 Medication: 17:46 VIS not applicable for this client. me1 Outcome: 17:47 Discharge ordered by . dr5 17:53 Discharged to home ambulatory, with family, me1 17:53 Condition: stable 17:53 Discharge instructions given to patient, Instructed on discharge instructions, follow up and referral plans. medication usage, Demonstrated understanding of instructions, follow-up care, medications, Prescriptions given X 2, 17:54 Patient left the ED. me1 Signatures: Candi Silva RN RN me1 Shaw Valle, DOCUMENT REVIEW SPECIALIST-C DOCUMENT REVIEW SPECIALIST-Cdr5 Areli Simeon cj3
[2025-07-09] MEDS ORDERED: KETOROLAC 30 MG/ML INJ ONE (17:48)
[2025-07-09] MEDS ORDERED: HYDROCODONE/APAP 5/325 MG TAB ONE (17:48)
[2025-07-09 23:26] VITALS: BP 148/82; TEMP 98.2; O2SAT 99
== END 2025-07-09 17:54 | disposition home or self-care (01) ==
LOC: ER 17:14
DX: K02.9 Dental caries, unspecified (principal); F17.210 Nicotine dependence, cigarettes, uncomplicated
CPT/HCPCS: 96372; 99284